=== PATIENT | male | born 1980 | race Caucasian/White ===

== ENCOUNTER 2019-08-07 11:18 | Outpatient (CLI) | payer OTHER, SELFPAY ==
--- NOTE | 2019-08-07 | ECHO_ITS ---
Patient Info Name: Seth Quick Age: 39 years : 1980 Gender: Male Ht: 72 in Wt: 176 lbs BSA: 2.02 m2 HR: 60 bpm BP: 141 / 89 mmHg Technical Quality: Good Exam Date: 08/07/2019 11:45 AM Exam Location: [facility] Patient Status: Outpatient Admit Date: 08/07/2019 Staff Ordering Physician: AbdoulEfrem NP Incoming Inspector: Jody Hernandez RDCS Attending Provider: AbdoulEfrem NP Exam Type: CA echo doppler color flow Study Info Indications - CP ABN EKG Complete two-dimensional, color flow and Doppler transthoracic echocardiogram is performed. Summary 1. Left ventricular chamber dimension is normal. 2. Left ventricular systolic function is normal, estimated at 60-65%. 3. The left ventricular diastolic function is normal. 4. E/e' 5 is not elevated. 5. There is trace mitral valve regurgitation. 6. There is trace tricuspid valve regurgitation. 7. No pulmonary hypertension, estimated pulmonary arterial systolic pressure is 22 mmHg. Left Ventricle E/e' 5 is not elevated. Left ventricular chamber dimension is normal. Left ventricular systolic function is normal, estimated at 60-65%. The left ventricular diastolic function is normal. Right Ventricle Right ventricular chamber dimension is normal. Right ventricular systolic function is normal. Left Atria Left atrial chamber dimension is normal. Right Atria Right atrial chamber dimension is normal. Aortic Valve The aortic valve is trileaflet. There is no aortic valve stenosis. There is no aortic valve regurgitation. Pulmonic Valve There is no pulmonic regurgitation. Mitral Valve There is no mitral valve stenosis. There is trace mitral valve regurgitation. Tricuspid Valve There is trace tricuspid valve regurgitation. No pulmonary hypertension, estimated pulmonary arterial systolic pressure is 22 mmHg. Pericardium/Pleural There is no pericardial effusion. Inferior Vena Cava Normal inferior vena cava with >50% collapse upon inspiration consistent with normal right atrial pressure, 5 mmHg. Aorta The aortic root size at the sinus of Valsalva is normal. Left Ventricular Outflow Tract Name Value Normal LVOT 2D LVOT Diameter 2.0 cm LVOT Doppler LVOT Peak Gradient 4 mmHg LVOT Mean Gradient 2 mmHg LVOT VTI 23 cm LVOT VTI/AV VTI Ratio 1.0 LVOT Stroke Volume 72 ml LVOT CO 13.2 l/min LVOT CI 6.5 l/min/m2 Pulmonic Valve Name Value Normal PV Doppler PV Peak Gradient 2 mmHg Mitral Valve Name Value Normal
== END 2019-08-07 11:19 | disposition home or self-care (01) ==
PROVIDERS: PCP Family Medicine; Visit Provider Nurse Practitioner Family
DX: R07.89 Other chest pain (principal)
CPT/HCPCS: 93306

== ENCOUNTER 2023-08-03 11:08 | Emergency (ER) | payer OTHER, SELFPAY ==
--- NOTE | ~2023-08-03 | XR_ITS ---
Right Hand Technique: PA, oblique, and lateral views were obtained. Clinical History: Crush injury Findings: There is acute, volar angulated and mildly displaced fracture the distal fifth metacarpal n cris. No other fracture or dislocation seen.. Joint spaces are preserved. Soft tissues are unremarkabl e. Impression: Acute fracture the distal fifth metacarpal neck, as detailed above. Reviewed, dictated and finalized at location . Impression: Acute fracture the distal fifth metacarpal neck, as detailed above.
[2023-08-03 11:22] VITALS: BP 135/91; PULSE 77; RESP 16; TEMP 37.3; O2SAT 100
--- NOTE | 2023-08-03 11:55 | ED.UPPEXIN ---
HPI - Extremity Injury (Upper) General Chief Complaint: Extremity Injury, Upper Stated Complaint: right hand injury Time Seen by Provider: 08/03/23 11:46 Source: patient and RN notes reviewed Mode of arrival: ambulatory Limitations: no limitations History of Present Illness HPI narrative: Patient presents today complaining of an injury to his right hand. Three days ago he accidentally slammed his hand in a truck door. He does have some tingling to the hand that radiates to the forearm. Denies numbness. Currently rates his pain 5/10, which increases with movement of his 5th finger. He has tried no [id number] treatment prior to arrival. He is right-hand dominant Related Data Home Medications Medication Instructions Recorded Confirmed No Home Medications 12/22/20 08/03/23 Allergies Allergy/AdvReac Type Severity Reaction Status Date / Time No Known Allergies Allergy Verified 08/03/23 11:29 Review of Systems Review of Systems: CONSTITUTIONAL: Denies body aches, fever, chills, or sweats. EYES: Denies visual changes, redness, or discharge. ENT: Denies rhinorrhea, congestion, sore throat, or otalgia. CARDIOVASCULAR: Denies chest pain, palpitations, or edema. RESPIRATORY: Denies cough or dyspnea. GASTROINTESTINAL: Denies abdominal pain, nausea, vomiting, or diarrhea. GENITOURINARY: Denies dysuria or hematuria. SKIN: Denies rash, itching, or wounds. MUSCULOSKELETAL: + right hand injury NEUROLOGIC: Denies headache, numbness, tingling, or weakness. PSYCH: Denies depression or anxiety. [facility] Surgical History Surgical History Bimalleolar fracture of right ankle ORIF April 2018 Social History Social History Smoking status: Current every day smoker Tobacco type: cigarettes Alcohol intake: current Living arrangements: with family Occupation/Education: occupation Additional occupation/education comments: laborer driver Gender identity (if verbalized by the patient): Male Comments At time of signature, I have reviewed and agree with nursing past medical, surgical, social and family history unless otherwise noted. Please see nursing chart for further information. There is no relevant family history pertinent to the presenting complaint Exam Narrative: GENERAL: Well-appearing, well-nourished, and in no acute distress. HEAD: Normocephalic, atraumatic. EYES: EOMI. No redness or drainage. Conjunctivae normal. ENT: Mucous membranes pink and moist. NECK: Normal AROM. CHEST: No respiratory distress. EXTREMITIES: Right hand: Tenderness to the 5th finger and 5th metacarpal with mild edema. No deformity or ecchymosis. Distal sensation intact. Capillary refill normal. Decreased range of motion in the 5th finger due to pain. SKIN: Warm, dry, no rash. Capillary refill normal. Normal skin turgor. NEURO: No focal deficits. Alert and oriented x3. Gait steady. PSYCH: Normal affect. No signs of depression or anxiety. Course Course Level of Care: Express Care Visit Vital Signs Vital signs: Vital Signs Temperature 99.1 F 08/03/23 11:22 Pulse Rate 77 08/03/23 11:22 Respiratory Rate 16 08/03/23 11:22 Blood Pressure 135/91 H 08/03/23 11:22 Pulse Oximetry 100 08/03/23 11:22 Oxygen Delivery Room Air 08/03/23 11:22 Temperature 99.1 F 08/03/23 11:22 Pulse Rate 77 08/03/23 11:22 Respiratory Rate 16 08/03/23 11:22 Blood Pressure 135/91 H 08/03/23 11:22 Pulse Oximetry 100 08/03/23 11:22 Oxygen Delivery Room Air 08/03/23 11:22 Reviewed Procedures Orthopedic Splinting/Casting Injury #1: Splinting/Casting Date: 08/03/23 Splinting/Casting Time: 12:27 Side: right Upper Extremity Injury Location: hand OCL: ulnar gutter Pre-Procedure Neuro Vascular Exam: normal Post-Procedure Neuro Vascular Ex
== END 2023-08-03 12:32 | disposition home or self-care (01) ==
PROVIDERS: Emergency Provider Nurse Practitioner; PCP Family Medicine
DX: S62.336A Displaced fracture of neck of fifth metacarpal bone, right hand, initial encounter for closed fracture (principal); X58.XXXA Exposure to other specified factors, initial encounter; F17.210 Nicotine dependence, cigarettes, uncomplicated
CPT/HCPCS: 29125; 73130; 99214; G0463

== ENCOUNTER 2024-06-10 17:58 | Emergency (ER) | payer OTHER, SELFPAY ==
--- NOTE | ~2024-06-10 | XR_ITS ---
[id number] Ordering provider: America Banda APRN History: . pain, injury to left side . Comparison: None. FINDINGS: BONES: Fracture near to the anterior tip is seen in the left seventh, eighth, ninth and 10th ribs LEFT LUNG: No effusions or infiltrates. No pneumothorax. SOFT TISSUES: Normal. IMPRESSION: Multiple ribs fractures in the left lower thorax. Reviewed, dictated and finalized at location A.
[2024-06-10 18:06] VITALS: BP 135/88; PULSE 99; RESP 16; TEMP 37.4; O2SAT 99
--- NOTE | 2024-06-10 18:17 | ED_ITS ---
HPI - General Adult General Chief complaint: Unspecified Stated complaint: Left Side Flank Pain Time Seen by Provider: 06/10/24 18:31 Source: patient, RN notes reviewed and old records reviewed Mode of arrival: ambulatory Limitations: no limitations History of Present Illness HPI narrative: 43-year-old male presents to [facility] with left lateral rib pain and tenderness. Patient states that 1 week ago was leaning on his truck, was reaching for something and felt a pop in the lateral aspect. No bruising or swelling noted. Tenderness is noted. No treatment prior to arrival Related Data Allergies Allergy/AdvReac Type Severity Reaction Status Date / Time No Known Allergies Allergy Verified 06/10/24 18:40 Review of Systems 2 Review of Systems: All systems reviewed & are unremarkable except as noted in HPI and below Constitutional: Constitutional: Reports no additional constitutional complaints ENT: Reports system reviewed and no additional complaints, except as documented Cardiovascular: Cardiovascular: Reports no additional cardiovascular complaints, Denies chest pain and Denies dyspnea Respiratory: Respiratory: Reports no additional respiratory complaints, Denies chest congestion, Denies cough and Denies dyspnea Musculoskeletal: Musculoskeletal: Reports as per HPI Integumentary/Breasts: Skin/Breast: Reports system reviewed and no additional complaints, except as docu [facility] Surgical History Surgical History Bimalleolar fracture of right ankle ORIF April 2018 Social History Social History Smoking status: Current every day smoker Tobacco type: cigarettes Alcohol intake: current Living arrangements: with family Occupation/Education: occupation Additional occupation/education comments: laborer road Gender identity (if verbalized by the patient): Male Comments At the time of my signature, I reviewed and agree with the nursing past medical, surgical, social, and family history. There is no relevant family history pertinent to the patient complaint. Exam 2 Const: General: cooperative, healthy appearing, comfortable, no acute distress, well developed, alert and well nourished Nutritional Appearance: w ell nourished Orientation/consciousness: patient oriented x3 Limitations: no limitations HENMT: Head: normal to inspection Eyes: General: appearance normal, both eyes and all related structures A lignment and Position: alignment normal Neck: Neck: normal visual inspection, full ROM, no lymphadenopathy and no meningeal signs Chest: Chest palpation & inspection: normal inspection of the chest Chest/axillae images: 1. Tenderness lateral aspect without erythema, ecchymosis. Resp: Effort & Inspection: normal respiratory effort and able to speak in complete sentences Auscultation: clear to auscultation bilaterally, no crackles, no rales, no rhonchi and no wheezes Cardio: Rate: regular rate Skin: General skin exam: normal color and no rashes or lesions noted Neuro: General: patient oriented x3, gait normal, moves all extremities and no meningeal signs Cognition (Neuro): normal cognition Speech: normal speech Gait exam (Neuro): Normal gait present Extrem: General: normal to inspection, full ROM, capillary refill normal and normal gait Psych: Appearance: grossly normal and well kempt Mental Status: mental status grossly normal Speech and movement: Normal speech and movement present and Clear speech present Affect: normal affect Attitude: cooperative Course Course Level of Care: Express Care Visit Vital Signs Vital signs: Vital Signs Temperature 99.3 F 06/10/24 18:06 Pulse Rate 99 06/10/24 18:06 Respiratory Rate 16 06/10/24 18:06 Blood Pressure 135/88 06/10/24 18:06 Pulse Oximetry 99 06/10/24 18:06 Oxygen Delivery Room Air 06/10/24 18:06 Temperature 99.3 F 06/10/24 18:06 Pulse Rate 99 06/10/24 18:06 Respiratory Rate 16 06/10/24 18:06 Blood Pressure 135/88 06/10/24 18:06 Pulse Oximetry 99 06/10/24 18:06 Oxygen Delivery Room Air 06/10/24 18:06 Reviewed Medical Decision Making MDM Narrative Medical decision making narrative: Patient sitting comfortably in exam room. Nontoxic, vitals stable. Patient in no acute distress Patient presents for left lateral rib pain. No treatment prior to arrival. X- ray shows fractures of 4 ribs, 7,8,9 and 10. Patient appropriate for outpatient treatment with close follow-up, incentive spirometer given. Discharge instructions reviewed with patient, as well as provided in writing per nursing staff. The instructions also include specific and strict return/GO TO THE ER as well as f/u information. All questions have been answered, and the patient deny any further questions with discharge and discharge plan. Some parts of this dictation were generated by voice recognition software and may contain typographical and/or grammatical inaccuracies. Differential Diagnosis Differential Diagnosis: Rib contusion, rib fracture Medical Records Medical records reviewed: Yes I reviewed the external patient's medical records. Vital Signs Vital Signs: Vital Signs Temperature 99.3 F 06/10/24 18:06 Pulse Rate 99 06/10/24 18:06 Respiratory Rate 16 06/10/24 18:06 Blood Pressure 135/88 06/10/24 18:06 Pulse Oximetry 99 06/10/24 18:06 Oxygen Delivery Room Air 06/10/24 18:06 Temperature 99.3 F 06/10/24 18:06 Pulse Rate 99 06/10/24 18:06 Respiratory Rate 16 06/10/24 18:06 Blood Pressure 135/88 06/10/24 18:06 Pulse Oximetry 99 06/10/24 18:06 Oxygen Delivery Room Air 06/10/24 18:06 Reviewed Lab Data Lab results reviewed: Yes I reviewed the patient's lab results. Labs: Reviewed Imaging Data Radiologist's impression: [id number] Ordering provider: America Banda APRN History: . pain, injury to left side . Comparison: None. FINDINGS: BONES: Fracture near to the anterior tip is seen in the left seventh, eighth, ninth and 10th ribs LEFT LUNG: No effusions or infiltrates. No pneumothorax. SOFT TISSUES: Normal. IMPRESSION: Multiple ribs fractures in the left lower thorax. Critical Care Time Critical Care Time Critical Care Time: No Discharge Plan Discharge Clinical Impression: Closed fracture of four ribs Patient Disposition: Home Condition: Stable Instructions: Antibiotic Form, How to Use an Incentive Spirometer (ED), Rib Fracture (ED) Additional Instructions: Today your x-ray showed that 4 ribs were fractured,the left seventh, eighth, ninth and 10th ribs It is extremely important that you take 10 deep breaths every hour while awake, use the incentive spirometer Stop smoking No heavy lifting pushing or pulling until clear by your primary care provider. Take ibuprofen as prescribed. Take pain medication only as prescribed. Follow-up with primary care provider this week For new or worsening symptoms PLEASE GO DIRECTLY TO THE NEAREST EMERGENCY ROOM Patient Language: Bengali Prescriptions: New hydrocodone-acetaminophen 5-325 mg tablet 1 tablet PO Q6H PRN (Reason: pain) Qty: 15 0RF ibuprofen 600 mg tablet 600 mg PO TID PRN (Reason: fever or pain) Qty: 30 0RF naloxone [Narcan] 4 mg/actuation spray,non-aerosol 1 spray intranasal Q2M Qty: 2 0RF Rx Instructions: spray 1 dose into ONE nostril; alternate nostrils w each dose until help arrives Follow-up/Referrals: Jong Kirby MD [Physician] - 3 Days (EXPRESS CARE FOLLOW UP ) Stand Alone Forms: Work/School Release IP Time of Disposition: 19:21
== END 2024-06-10 19:30 | disposition home or self-care (01) ==
PROVIDERS: Emergency Provider Nurse Practitioner; PCP Family Medicine
DX: S22.42XA Multiple fractures of ribs, left side, initial encounter for closed fracture (principal); W22.8XXA Striking against or struck by other objects, initial encounter; F17.210 Nicotine dependence, cigarettes, uncomplicated
CPT/HCPCS: 71101; 99213; G0463